=== PATIENT | female | born 1945 | race Caucasian/White ===

== ENCOUNTER 2019-09-19 16:49 | Emergency (ER) | payer MEDICARE, BC ==
[2019-09-19 17:48] LABS: BASOPHILS # (AUTO) 0.1 10^3/uL (0.0-0.1); BASOPHILS % (AUTO) 0.5 %; HGB - HEMOGLOBIN 14.6 g/dL (12.0-16.0); LYMPHOCYTES # (AUTO) 2.5 10^3/uL (1.5-3.5); LYMPHOCYTES % (AUTO) 25.2 %; MEAN CORPUSCULAR HEMOGLOBIN 28.5 pg (27.0-31.0); MEAN CORPUSCULAR HGB CONC 31.4 g/dL (32.0-36.0); MEAN CORPUSCULAR VOLUME 90.8 fL (81.0-99.0); MEAN PLATELET VOLUME 11.1 fL (7.9-10.8); MONOCYTES # (AUTO) 0.7 10^3/uL (0.0-1.0); MONOCYTES % (AUTO) 7.1 %; NEUTROPHILS # (AUTO) 6.7 10^3/uL (1.5-6.6); NEUTROPHILS % (AUTO) 66.9 %; PLT - PLATELET COUNT 221 10^3/uL (130-450); RED BLOOD COUNT 5.12 10^6/uL (4.20-5.40); RED CELL DISTRIBUTION WIDTH 13.9 % (12.0-15.0); WHITE BLOOD COUNT 10.1 x10^3/uL (4.8-10.8)
[2019-09-19 18:00] LABS: ALBUMIN/GLOBULIN RATIO 1.3 (1.0-2.2); BILIRUBIN,TOTAL 0.6 mg/dL (0.2-1.0); CALCIUM 8.6 mg/dL (8.5-10.3); CREATININE 0.6 mg/dL (0.4-1.0); TOTAL PROTEIN 7.2 g/dL (6.7-8.2)
[2019-09-19 18:44] LABS: BILIRUBIN,URINE NEGATIVE (NEGATIVE); GLUCOSE, URINE (UA) NEGATIVE (NEGATIVE); KETONES,URINE (UA) NEGATIVE (NEGATIVE); LEUKOCYTE ESTERASE, URINE NEGATIVE (NEGATIVE); NITRITE,URINE NEGATIVE (NEGATIVE); OCCULT BLOOD,URINE LARGE (NEGATIVE); PH,URINE 6.5 PH (5.0-7.5); PROTEIN,URINE TRACE mg/dL (NEGATIVE); UROBILINOGEN,URINE 0.2 (NORMAL) E.U./dL (NORMAL)
[2019-09-19 18:46] LABS: CLARITY,URINE BLOODY (CLEAR)
[2019-09-19 18:58] LABS: BACTERIA,URINE None Seen /HPF (None Seen); RBC,URINE TNTC /HPF (0-5); SQUAMOUS EPITHELIAL CELL,UR NONE SEEN (<= Few)
--- NOTE | 2019-09-19 19:01 | ED Physician Documentation ---
PD HPI ABD PAIN - Stated complaint Stated Complaint: BACK/ABD PX, BLOOD IN URINE - Chief complaint Chief Complaint: Back Pain - History obtained from History obtained from: Patient - History of Present Illness Timing - onset: Other (74-year-old woman on Coumadin for history of DVT presents with resolved right flank pain that was severe mid day today associated with gross hematuria now the color of white [place]. No pain at this juncture. No history of renal colic.) Review of Systems Ten Systems: 10 systems reviewed and negative Constitutional: denies: Fever, Chills GI: denies: Nausea, Vomiting, Diarrhea : denies: Dysuria, Frequency PD PAST MEDICAL HISTORY - Present Medications Home Medications: Ambulatory Orders Medication Instructions Recorded Confirmed Hydrocodone/Acetaminophen 1 - 2 each PO Q6H PRN #14 tablet 09/19/19 [Hydrocodon-Acetaminophen 5-325] - Allergies Allergies/Adverse Reactions: Allergies Allergy/AdvReac Type Severity Reaction Status Date / Time naproxen [From Naprosyn] AdvReac Mild Itching Verified 09/19/19 16:54 adhesive tape AdvReac Itching Verified 09/19/19 17:02 amlodipine [From Norvasc] AdvReac Unknown Verified 09/19/19 17:02 codeine AdvReac Nausea Verified 09/19/19 17:00 hydrochlorothiazide AdvReac Unknown Verified 09/19/19 17:02 lisinopril AdvReac Unknown Verified 09/19/19 17:02 losartan AdvReac Unknown Verified 09/19/19 17:02 warfarin AdvReac Rash Verified 09/19/19 16:55 PD ED PE NORMAL - Vitals Vital signs reviewed: Yes - General General: Alert and oriented X 3, No acute distress - Neck Neck: Supple, no meningeal sign, No bony TTP - Cardiac Cardiac: RRR, No murmur - Respiratory Respiratory: No respiratory distress, Clear bilaterally - Abdomen Abdomen: Non tender - Back Back: No CVA TTP - Neuro Neuro: Alert and oriented X 3, Normal speech Results - Vitals Vitals: Vital Signs - 24 hr 09/19/19 09/19/19 16:56 18:54 Temperature 36.6 C 36.9 C Heart Rate 78 70 Respiratory 18 14 Rate Blood Pressure 157/68 H 146/74 H O2 Saturation 96 94 Oxygen O2 Source Room air - Labs Labs: Laboratory Tests 09/19/19 09/19/19 09/19/19 17:41 17:41 17:41 WBC 10.1 RBC 5.12 Hgb 14.6 Hct 46.5 MCV 90.8 MCH 28.5 MCHC 31.4 L RDW 13.9 Plt Count 221 MPV 11.1 H Neut # (Auto) 6.7 H Lymph # (Auto) 2.5 [place] # (Auto) 0.7 Eos # (Auto) 0.0 Baso # (Auto) 0.1 Absolute Nucleated RBC 0.00 Nucleated RBC % 0.0 PT 22.3 H INR 2.0 H Sodium 141 Potassium 3.3 L Chloride 108 Carbon Dioxide 24 Anion Gap 9.0 BUN 13 Creatinine 0.6 Estimated GFR (MDRD) 98 Glucose 100 Calcium 8.6 Total Bilirubin 0.6 AST 17 ALT 18 Alkaline Phosphatase 70 Total Protein 7.2 Albumin 4.0 Globulin 3.2 Albumin/Globulin Ratio 1.3 Lipase 42 Urine Color Urine Clarity Urine pH Ur Specific [place] Urine Protein Urine Glucose (UA) Urine Ketones Urine Occult Blood Urine Nitrite Urine Bilirubin Urine Urobilinogen Ur Leukocyte Esterase Urine RBC Urine WBC Ur Squamous Epith Cells Urine Bacteria Ur Microscopic Review Urine Culture Comments 09/19/19 18:35 WBC RBC Hgb Hct MCV MCH MCHC RDW Plt Count MPV Neut # (Auto) Lymph # (Auto) [place] # (Auto) Eos # (Auto) Baso # (Auto) Absolute Nucleated RBC Nucleated RBC % PT INR Sodium Potassium Chloride Carbon Dioxide Anion Gap BUN Creatinine Estimated GFR (MDRD) Glucose Calcium Total Bilirubin AST ALT Alkaline Phosphatase Total Protein Albumin Globulin Albumin/Globulin Ratio Lipase Urine Color LT RED Urine Clarity BLOODY Urine pH 6.5 Ur Specific [place] <=1.005 Urine Protein TRACE Urine Glucose (UA) NEGATIVE Urine Ketones NEGATIVE Urine Occult Blood LARGE H Urine Nitrite NEGATIVE Urine Bilirubin NEGATIVE Urine Urobilinogen 0.2 (NORMAL) Ur Leukocyte Esterase NEGATIVE Urine RBC TNTC H Urine WBC 0-3 Ur Squamous Epith Cells NONE SEEN Urine Bacteria None Seen Ur Microscopic Review INDICATED Urine Culture Comments NOT INDICATED - Rads (name of study) CT KUB Radiology: EMP read contemporaneously (2mm R UVJ stone, 5mm infrarenal stone) PD MEDICAL DECISION MAKING - ED course ED course: Pain free here. Departure - Departure Disposition: 01 Home, Self Care Clinical Impression: Renal colic on right side Condition: Good Record reviewed to determine appropriate education?: Yes Instructions: ED Stone Renal W Colic Prescriptions: Hydrocodone/Acetaminophen [Hydrocodon-Acetaminophen 5-325] 1 - 2 each PO Q6H PRN #14 tablet PRN Reason: pain Comments: Followup [facility] if you wish, but stone is only 2mm so should not need anything specifc.
[2019-09-19 19:19] LABS: PT - PROTHROMBIN TIME 22.3 secs (9.9-12.6)
--- NOTE | 2019-09-19 19:57 | CT Report ---
Reason: R flank pain, hematuria Procedure Date: 09/19/2019 Accession Number: [id number] / [id number] Procedure: CT - Abdomen/Pelvis WO CPT Code: FULL RESULT: EXAM: CT ABDOMEN AND PELVIS (CT KUB) EXAM DATE: 09/19/2019 07:17 PM. CLINICAL HISTORY: R flank pain, hematuria. COMPARISONS: None. TECHNIQUE: Routine axial helical CT imaging was performed through the abdomen and pelvis without IV contrast. Reconstructions: Coronal and sagittal. In accordance with CT protocol optimization, one or more of the following dose reduction techniques were utilized for this exam: automated exposure control, adjustment of mA and/or KV based on patient size, or use of iterative reconstructive technique. FINDINGS: Lung Bases: Atelectasis versus scarring in the right lung base posteriorly. Right Kidney/Ureter: There is a cortical calcification measuring up to 5 mm along the lateral cortex of the right kidney. There is a 2 mm stone in the right ureterovesical junction with no upstream hydroureter or hydronephrosis. Left Kidney/Ureter: No stones, hydronephrosis, or hydroureter. No perinephric fat stranding. Other Solid Organs: Noncontrast images of the solid organs are grossly unremarkable. Gallbladder/Bile Ducts: The gallbladder is absent. Peritoneal Cavity: No free fluid, free air or britta adenopathy. Bowel is grossly unremarkable. Pelvic Organs: No bladder stones or wall thickening. Noncontrast images of the visualized pelvic organs are unremarkable. Vasculature: Unremarkable. Other: None. IMPRESSION: 1. There is a 2 mm stone in the right ureterovesical junction with no upstream hydroureter or hydronephrosis. 2. There is an additional 5 mm cortical calcification along the lateral cortex of the right kidney. RADIA
[2019-09-19] MEDS ORDERED: HYDROcod/ACET 5/325 Prepack 4 PO STA (20:14)
[2019-09-19 20:22] VITALS: BP 148/85
== END 2019-09-19 20:26 | disposition home or self-care (01) ==
LOC: ED 16:49
DX: N20.2 Calculus of kidney with calculus of ureter (principal); Z86.718 Personal history of other venous thrombosis and embolism; Z79.01 Long term (current) use of anticoagulants
CPT/HCPCS: 36415; 74176; 80053; 81001; 81003; 83690; 85025; 85610; 87086; 99284

== ENCOUNTER 2019-09-22 16:36 | Emergency (ER) | payer MEDICARE, BC ==
[2019-09-22 16:44] VITALS: BP 159/70
[2019-09-22 17:02] LABS: BILIRUBIN,URINE NEGATIVE (NEGATIVE); GLUCOSE, URINE (UA) NEGATIVE (NEGATIVE); KETONES,URINE (UA) NEGATIVE (NEGATIVE); LEUKOCYTE ESTERASE, URINE NEGATIVE (NEGATIVE); NITRITE,URINE NEGATIVE (NEGATIVE); OCCULT BLOOD,URINE MODERATE (NEGATIVE); PROTEIN,URINE 100 mg/dL (NEGATIVE); UROBILINOGEN,URINE 0.2 (NORMAL) E.U./dL (NORMAL)
[2019-09-22 17:07] LABS: CLARITY,URINE HAZY (CLEAR)
[2019-09-22 17:39] LABS: BACTERIA,URINE Few /HPF (None Seen); RBC,URINE 0-5 /HPF (0-5); SQUAMOUS EPITHELIAL CELL,UR FEW Squamous (<= Few)
[2019-09-22] MEDS ORDERED: PHENAZOPYRIDINE 100 MG TABLET PO STA (17:49)
[2019-09-22] MEDS ORDERED: NITROFURANTOIN MACRO 100 MG CAPSULE PO STA (17:49)
--- NOTE | 2019-09-22 17:57 | ED Physician Documentation ---
History of Present Illness - Stated complaint Stated Complaint: FEMALE - Chief complaint Chief Complaint: UTI - History obtained from History obtained from: Patient - History of Present Illness Pain level max: 5 Pain level now: 3 - Additonal information Additional information: 74-year-old female presents to the emergency department with dysuria, urgency and frequency for the past several days. Recently diagnosed with a 2 mm right UVJ stone. No fevers. No vomiting. Recently treated for UTI. Concerned that it may be recurrent. Her flank pain has resolved. 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: Other : Chronic bladder infection - Past Surgical History Past Surgical History: Yes Ortho: Other /CROP ROLLER: Hysterectomy - Present Medications Home Medications: Ambulatory Orders Medication Instructions Recorded Confirmed Hydrocodone/Acetaminophen 1 - 2 each PO Q6H PRN #14 tablet 09/19/19 [Hydrocodon-Acetaminophen 5-325] Nitrofurantoin Monohyd/M-Cryst 100 mg PO BID #10 capsule 09/22/19 [Macrobid 100 mg Capsule] - Allergies Allergies/Adverse Reactions: Allergies Allergy/AdvReac Type Severity Reaction Status Date / Time naproxen [From Naprosyn] AdvReac Mild Itching Verified 09/22/19 16:42 adhesive tape AdvReac Itching Verified 09/22/19 16:42 amlodipine [From Norvasc] AdvReac Unknown Verified 09/22/19 16:42 codeine AdvReac Nausea Verified 09/22/19 16:42 hydrochlorothiazide AdvReac Unknown Verified 09/22/19 16:42 lisinopril AdvReac Unknown Verified 09/22/19 16:42 losartan AdvReac Unknown Verified 09/22/19 16:42 warfarin AdvReac Rash Verified 09/22/19 16:42 - Social History Does the pt smoke?: No Smoking Status: Never smoker Does the pt drink ETOH?: No Does the pt have substance abuse?: No - Immunizations Immunizations: TDAP >10years/unknown PD ED PE NORMAL - Vitals Vital signs reviewed: Yes - General General: Alert and oriented X 3, No acute distress - HEENT HEENT: Moist mucous membranes - Neck Neck: Supple, no meningeal sign - Cardiac Cardiac: RRR - Respiratory Respiratory: No respiratory distress, Clear bilaterally - Abdomen Abdomen: Soft, Non tender, Non distended - Back Back: No CVA TTP - Derm Derm: Warm and dry - Neuro Neuro: Alert and oriented X 3 Results - Vitals Vitals: Oxygen O2 Source Room air - Labs Labs: Laboratory Tests 09/22/19 16:50 Urine Color YELLOW Urine Clarity HAZY Urine pH 6.0 Ur Specific [place] 1.020 Urine Protein 100 H Urine Glucose (UA) NEGATIVE Urine Ketones NEGATIVE Urine Occult Blood MODERATE H Urine Nitrite NEGATIVE Urine Bilirubin NEGATIVE Urine Urobilinogen 0.2 (NORMAL) Ur Leukocyte Esterase NEGATIVE Urine RBC 0-5 Urine WBC 0-3 Ur Squamous Epith Cells FEW Squamous Urine Bacteria Few Ur Microscopic Review INDICATED Urine Culture Comments NOT INDICATED PD MEDICAL DECISION MAKING - ED course Complexity details: reviewed old records, reviewed results, considered differential, d/w patient ED course: 74-year-old female with a recent diagnosis of a kidney stone. Appears to have passed this, but is not having symptoms concerning for UTI. Given her recent stone, will air on the side of caution and treat this. She is well-appearing, nontoxic. Afebrile. No evidence of pyelonephritis. Patient counseled regarding signs and symptoms for which I believe and urgent re-evaluation would be necessary. Patient with good understanding of and agreement to plan and is comfortable going home at this time This document was made in part using voice recognition software. While efforts are made to proofread this document, sound alike and grammatical errors may occu r. Departure - Departure Disposition: 01 Home, Self Care Clinical Impression: Urinary tract infection Qualifiers: Urinary tract infection type: acute cystitis Hematuria presence: without hematuria Qualified Code(s): N30.00 - Acute cystitis without hematuria Condition: Good Instructions: Cystitis Interstitial, ED UTI Cystitis Female Follow-Up: your,doctor in 1 week [Other] Prescriptions: Nitrofurantoin Monohyd/M-Cryst [Macrobid 100 mg Capsule] 100 mg PO BID #10 capsule Comments: Follow-up with your doctor for further care. You may be suffering from interstitial cystitis as well. Return if you worsen Discharge Date/Time: 09/22/19 18:13
== END 2019-09-22 18:13 | disposition home or self-care (01) ==
LOC: ED 16:36
DX: N30.00 Acute cystitis without hematuria (principal)
CPT/HCPCS: 81001; 99283; A9270; 81003; 87086

== ENCOUNTER 2021-08-06 08:00 | Outpatient (CLI) | payer MEDICARE, BC ==
--- NOTE | 2021-08-06 15:32 | XRAY Report ---
PROCEDURE: Hand 3 View LT INDICATIONS: CONTUSION OF LEFT HAND TECHNIQUE: 3 views of the hand(s) acquired. COMPARISON: None FINDINGS: Bones: No fractures or dislocations. No suspicious bony lesions. IP degenerative as well as first CMC narrowing is present. No definitive erosions. Soft tissues: No suspicious soft tissue calcifications. IMPRESSION: No visualized acute fracture or dislocation. However, occult injury cannot be excluded. Recommend fareed rt interval imaging follow-up in 7-10 days as clinically indicated for additional evaluation. Reviewed by: Petty Denson MD on 08/06/2021 3:31 PM PDT Approved by: Petty Denson MD on 08/06/2021 3:31 PM PDT Station ID: [id number]
== END 2021-08-06 23:59 | disposition home or self-care (01) ==
LOC: DI.S 08:00
PROVIDERS: ATTEND Emergency Medicine
DX: S60.222A Contusion of left hand, initial encounter (principal)

== ENCOUNTER 2023-05-21 08:00 | Outpatient (CLI) | payer MEDICARE, OTHER | END 2023-05-21 23:59 | disposition home or self-care (01) | LOC: LAB.S 08:00 | PROVIDERS: ATTEND Physician Assistant | DX: R30.0 Dysuria (principal) | CPT/HCPCS: 87086; 87181 ==

== ENCOUNTER 2024-03-03 08:00 | Outpatient (CLI) | payer MEDICARE, OTHER | END 2024-03-03 23:59 | disposition home or self-care (01) | LOC: LAB.N 08:00 | PROVIDERS: ATTEND Registered Nurse | DX: R30.0 Dysuria (principal); R82.79 Other abnormal findings on microbiological examination of urine | CPT/HCPCS: 87086; 87181 ==